=== PATIENT | male | born 1980 | race Two or more races ===

== ENCOUNTER → 2024-08-09 | Outpatient (CLI) | payer MEDICAID, SELFPAY ==
--- NOTE | 2024-08-09 15:30 | XR_ITS ---
Examination: CT abdomen without intravenous contrast. Coronal 2-D reconstructions. Sagittal 2-D reconstructions. Date and time of exam:August 09, 2024 1538 hours INDICATIONS: Periumbilical pain beginning one year ago CTDI: vol (mGy): 7.22 DLP: (mGycm): 276 Technique: Axial images of the abdomen have been obtained, 3 mm slice thickness, without intravenous contrast 2-D sagittal coronal reconstructions Low dose protocols were performed. One or more of the following dose reduction techniques were used; automated exposure control, adjustment of the mA and/or KV according to patient size, use of iterative reconstruction technique. Findings: No focal liver or splenic lesion No gallstones No pancreatic or adrenal mass 6 mm proteinaceous posterior right renal cyst Aorta normal size No bowel obstruction 6 mm fat-containing umbilical hernia Normal appendix IMPRESSION: Millimeters fat-containing umbilical hernia
== END | disposition home or self-care (01) ==
PROVIDERS: PCP Physician Assistant; Referring Provider Physician Assistant; Visit Provider Physician Assistant
DX: K42.9 Umbilical hernia without obstruction or gangrene (principal)
CPT/HCPCS: 74150

== ENCOUNTER → 2025-05-12 | Outpatient (CLI) | payer MEDICAID, SELFPAY ==
--- NOTE | 2025-05-12 10:30 | XR_ITS ---
Examination: Abdomen sonogram, complete Date and time of exam: May 12, 2025, 1044 hours INDICATIONS: Generalized abdominal pain beginning 1 year ago. Technique: Multiple real-time grayscale transabdominal sonographic images of the abdomen have been obtained. Findings: Normal gallbladder. Normal common bile duct 0.3 cm Pancreatic at 3.0 cm Aorta not enlarged. Liver 13.0 cm fatty infiltration no focal liver lesions Normal hepatopetal portal venous flow Patent IVC Right kidney 11.6 cm renal cortex 2.6 cm Left kidney 12.9 cm renal cortex 2.4 cm Mild renal parenchymal scar formation No hydronephrosis Splenomegaly 13.4 cm IMPRESSION: Normal gallbladder Fatty infiltration throughout the liver Mild splenomegaly
== END | disposition home or self-care (01) ==
PROVIDERS: PCP Physician Assistant; Referring Provider Physician Assistant; Visit Provider Physician Assistant
DX: K76.0 Fatty (change of) liver, not elsewhere classified (principal); R16.1 Splenomegaly, not elsewhere classified
CPT/HCPCS: 76700